=== PATIENT | female | born 1975 | race African-American/Black ===

== ENCOUNTER → 2023-08-31 | Outpatient (CLI) | payer MEDICAID | END | disposition home or self-care (01) | LOC: EDUNIT# 09:00 → MRI 09:03 | PROVIDERS: ATTEND Podiatrist Foot & Ankle Surgery | DX: S86.012A Strain of left Achilles tendon, initial encounter (principal); M19.072 Primary osteoarthritis, left ankle and foot; M79.672 Pain in left foot; M25.472 Effusion, left ankle; M76.60 Achilles tendinitis, unspecified leg; M24.573 Contracture, unspecified ankle; M20.10 Hallux valgus (acquired), unspecified foot; M25.376 Other instability, unspecified foot; M62.572 Muscle wasting and atrophy, not elsewhere classified, left ankle and foot; X58.XXXA Exposure to other specified factors, initial encounter; Y93.89 Activity, other specified; Y92.89 Other specified places as the place of occurrence of the external cause; Y99.8 Other external cause status; R60.9 Edema, unspecified | CPT/HCPCS: 73721 ==

== ENCOUNTER 2023-09-01 06:29 | Outpatient (CLI) | payer MEDICAID ==
[2023-09-01] MEDS ORDERED: LIDOcaine 1% (10mg/ml) 2ml vial ONE (06:38)
[2023-09-01] MEDS ORDERED: LIDOcaine 1% 30ml preserv. free vial ONE (06:39)
[2023-09-01] MEDS ORDERED: iohexol 300 MG/1 ML 50ml polymer ONE (06:39)
[2023-09-01] MEDS ORDERED: GADOTERATE MEGLUMINE 7.5 MMOL/15 ML VIAL IV ONE (06:39)
== END 2023-09-01 23:59 | disposition home or self-care (01) ==
LOC: RAD 06:29
PROVIDERS: ATTEND Pediatrics Sports Medicine
DX: S43.432A Superior glenoid labrum lesion of left shoulder, initial encounter (principal); M19.012 Primary osteoarthritis, left shoulder; M75.41 Impingement syndrome of right shoulder; X58.XXXA Exposure to other specified factors, initial encounter; Y93.89 Activity, other specified; Y92.89 Other specified places as the place of occurrence of the external cause; Y99.8 Other external cause status
CPT/HCPCS: 23350; 73222; 77002; A9575; J3490; Q9967; 73040; A6449